=== PATIENT | female | born 1980 | race Two or more races ===

== ENCOUNTER 2025-01-28 13:00 | Outpatient (RCR) | payer MEDICAID, SELFPAY ==
--- NOTE | 2025-01-22 10:11 | PT.OIERPT ---
PT OP Initial Eval Patient Information Outpatient Physical Therapy Treatment Date: 01/22/25 Visit Reasons: Chronic pain in RT shoulder Medical Diagnosis: Right Shoulder Pain Treatment Dx #1: Right Shoulder Pain Treatment Dx #2: Right Shoulder Weakness Start of Care: 01/22/25 Date of Onset: 6 months ago Smoking Status Smoking Status: Current every day smoker Cessation Counseling Provided: FELIZ was advised that quitting smoking is the single most important factor to protect the health of themselves and their family. Discussed the benefits of quitting smoking with patient. Encouraged patient to quit smoking and provided Cessation assistance materials and resources. Tobacco Use: Cigarette Years smoked: 10 Are you interested in quitting?: No Would you like additional Smoking Cessation Counseling?: No Initial Assessment Subjective: Pt is a 44 y/o female reports of chronic right shoulder pain (5/10) worse at night. Pt denies of injury or trauma to the shoulder. Pt has limitation with overhead motions, lifting, chores, self care, cooking, cleaning, and performing recreational activities Objective: Right Shoulder PROM: all motions are WFL with end range pain in all direction Right Shoulder AROM Flexion: 100 deg Abduction: 90 deg ER and IR: unable due to pain Right Shoulder MMTs: grossly 3-/5 Right Scapula MMTs: grossly 3-/5 Palpation: TTP supraspinatus tendon Assessment: Pt demonstrate right shoulder pain with mobility deficits consistent with possible rotator cuff involvement leading to difficulty with ADLs. Pt will attempt physical therapy if pain persist Pt will be refer back to provider for further consultation Short Term and Structures Assembler Goals 1) Increase right shoulder AROM WFL in 6 wks to be able to perform overhead motions 2) Decrease shoulder pain to 2/10 in 6 wks to be able to perform chores 3) Increase right shoulder MMTs grossly to 3+/5 in 6 wks to be able to cook and clean 4) Increase right scapula MMTs grossly to 3+/5 in 6 wks to be able to perform self care activities 5) Indep with HEP Treatment Plan 1) Manual Therapy 2) Therapeutic Activities 3) Therapeutic Exercises 4) Modalities (ice, heat) Frequency and Duration: 2 x wk for 6 wks Certification Dates: 01/22/25 to 04/24/25 Procedure Charges OP PT Eval Mod Complex 30 minutes: Yes
--- NOTE | 2025-01-28 13:55 | PT.ODAYNRPT ---
PT Outpatient Daily Note OP Daily Note Outpatient Physical Therapy Treatment Date: 01/28/25 Visit Reasons: Chronic pain in RT shoulder Subjective: Pt's shoulder continues to hurt and any arm movement. Objective: Please see flow chart for list of ther ex performed Assessment: pain with all shoulder exercises. Pt encouraged to complete exercises. Post ice helped with pain and soreness Plan: Continue with PT Length of Time (minutes) of Treatment: 30 Minutes Procedure Charges Therapeutic Exercise 30 minutes: Yes
== END 2025-02-17 23:59 | disposition home or self-care (01) ==
LOC: CPTX 13:00
PROVIDERS: PCP Physician Assistant; Referring Provider Physician Assistant; Visit Provider Physician Assistant
DX: M25.511 Pain in right shoulder (principal); G89.29 Other chronic pain; Z71.6 Tobacco abuse counseling; F17.210 Nicotine dependence, cigarettes, uncomplicated
CPT/HCPCS: 97110; 97162

== ENCOUNTER 2025-03-18 10:47 | Outpatient (RCR) | payer MEDICAID, SELFPAY ==
--- NOTE | 2025-03-18 11:34 | PT.ODAYNRPT ---
PT Outpatient Daily Note OP Daily Note Outpatient Physical Therapy Treatment Date: 03/18/25 Visit Reasons: right shoulder pain Subjective: Pt c/o shoulder pain, mentioened she was helping her boyfriend and son move boxes. Pt mentioned she was carrying a box that was light but still hurt her shoulder. Objective: Please see flow sheet for ther ex list. Assessment: Pt demonstrates poor tolerance with interventions due to high pain response with light interventions. Plan: Continue with POC. Length of Time (minutes) of Treatment: 30 Minutes Procedure Charges Therapeutic Exercise 30 minutes: Yes
== END 2025-03-20 23:59 | disposition home or self-care (01) ==
LOC: CPTX 10:47
PROVIDERS: PCP Physician Assistant; Referring Provider Physician Assistant; Visit Provider Physician Assistant
DX: M25.511 Pain in right shoulder (principal); R53.1 Weakness; G89.29 Other chronic pain
CPT/HCPCS: 97110

== ENCOUNTER 2025-05-28 21:41 | Emergency (ER) | payer MEDICAID, SELFPAY ==
[2025-05-28 21:41] VITALS: BMI 27.1
--- NOTE | 2025-05-28 21:48 | XR_ITS ---
Examination: Foot, right, 3 views Technique: AP, oblique, lateral views foot, 3 views Date and time of exam: May,, 1012 hours INDICATIONS: Patient fell today with injury to foot, foot pain FINDINGS: No acute fracture No dislocation No foreign body IMPRESSION: No acute fracture
--- NOTE | 2025-05-28 21:48 | XR_ITS ---
EXAMINATION: Ankle, right 3 views. Technique: Ankle AP, oblique, lateral 3 views Date and time of exam: May 28, 2025, 10:17 p.m. INDICATION: Patient fell today with injury to ankle, ankle pain. FINDINGS: No acute fracture. No dislocation No foreign body IMPRESSION: No acute fracture
[2025-05-28 23:12] VITALS: BP 124/76; PULSE 66; RESP 19; TEMP 37.1; O2SAT 99
--- NOTE | 2025-05-28 23:23 | PD.EDANKLE ---
Lower Extremity Injury RME/HPI General Chief Complaint: Ankle/Foot Injury Stated Complaint: R FOOT IN INJURY Time Seen by Provider: 05/28/25 22:38 Source: patient, RN notes reviewed and old records reviewed Arrival date/time: 05/28/25 21:41 Mode of arrival: wheelchair Limitations: no limitations RME / HPI RME / HPI Narrative: 45yof presents to ED for ankle/foot pain s/p injury today. Patient states she tripped going down a step and rolled her right ankle/foot, c/o lateral pain and swelling. No deformity reported. No medications or treatments captain room service. Related Data Home Medications ?Medication ?Instructions ?Recorded ?Confirmed albuterol sulfate 90 mcg/actuation 2 inh inhalation Q4HR PRN 11/16/23 04/10/24 aerosol inhaler Bronchospasm baclofen 10 mg tablet 10 mg PO HS 11/16/23 04/10/24 fluticasone 250 mcg-salmeterol 50 1 inh inhalation BID 11/16/23 04/10/24 mcg/dose blistr powdr for inhalation (Advair Diskus) ibuprofen 800 mg tablet 800 mg PO Q8H PRN Pain 11/16/23 04/10/24 Previous Rx's ?Medication ?Instructions ?Recorded ibuprofen 600 mg tablet 600 mg PO Q6H PRN pain #30 tabs 05/28/25 Allergies Allergy/AdvReac Type Severity Reaction Status Date / Time nitrofurantoin Allergy Severe Vomiting Verified 05/28/25 21:45 Review of Systems Review of Systems Systems Reviewed: All systems reviewed, normal except as documented Musculoskeletal Musculoskeletal: Reports arthralgias, Reports joint swelling, Reports limited range of motion, Denies numbness and Denies tingling Neurologic Neurologic: Denies numbness and Denies tingling Past Medical History Past Medical History RESPIRATORY: Positive Chronic Obstructive Pulmonary Disease (COPD) and Asthma MUSCULOSKELETAL: Positive Degenerative Disk Disease and Fibromyalgia PSYCHO/SOCIAL: Positive Bipolar Disorder, Depression and Anxiety OTHER HISTORY: Positive Chemotherapy (2012), Radiation Therapy (2012) and Cervical Cancer Surgical History SURGICAL: Positive Abdominal Surgery and Hysterectomy OTHER SURGICAL HX: L rotator cuff repair Social History SMOKING STATUS: Current every day smoker ED Exam General Limitations: Present no limitations General appearance: Present alert and in no apparent distress Head Head exam: Present atraumatic and normocephalic Eye Eye exam: Present normal appearance, PERRL and EOMI ENT ENT exam: Present normal exam and mucous membranes moist Neck Neck exam: Present normal inspection and full ROM Chest Chest inspection: Present normal inspection and symmetric chest wall rise Respiratory Respiratory exam: Present normal lung sounds bilaterally; Absent respiratory distress Cardiovascular Cardiovascular exam: Present regular rate and normal rhythm Extremities Exam Extremities exam: Present other (Mild tenderness/swelling to right lateral ankle/foot. Limited ROM 2/2 pain. Able to wiggle all toes. 2+ pedal pulse, sensation intact) Neurological Exam Neurological exam: Present alert and oriented X3 Psychiatric Psychiatric exam: Present normal affect and normal mood Skin Skin exam: Present warm, dry and intact Course Quality Measures none Orders Category Date Time Status Crutches .NOW Care 05/28/25 23:28 Completed Splint / Immobilizer STAT Care 05/28/25 23:24 Completed XR ankle comp RT min 3V Stat Exams 05/28/25 21:48 Completed XR foot comp RT min 3V Stat Exams 05/28/25 21:48 Completed Vital Signs Vital signs: Vital Signs Temperature 98.8 F 05/28/25 23:12 Pulse Rate 66 05/28/25 23:12 Respiratory Rate 19 05/28/25 23:12 Blood Pressure 124/76 05/28/25 23:12 Pulse Oximetry (%) 99 05/28/25 23:12 Oxygen Delivery Method Room Air 05/28/25 23:12 PROCEDURES: Splint Fabrication: Pre-Fabricated Type: Ankle Stirrup Reason for Splint: Optimal Positioning, Pain Management and Support Joint/Muscle Circulation Distal to Splint: Yes Movement Distal to Splint: Yes Senation Distal to Splint: Yes Tolerance: Tolerates Well Extremity Injury, Lower MDM Narrative MDM Narrative:: 45yof presents to ED for ankle/foot pain s/p injury today. Patient states she tripped going down a step and rolled her right ankle/foot, c/o lateral pain and swelling. No deformity reported. No medications or treatments captain room service. Patient is neurovascularly intact. Encouraged RICE therapy, pain mgmt prn. Ortho referral given for follow up as needed. Stable for dc, RTED precautions given. Patient data External records reviewed:: [facility] previous records (04/30/25 PT treatment for R shoulder pain) Clinical information provided by:: patient Social determinants that could affect healthcare access:: mental health Patient has the following chronic illnesses:: COPD, bipolar, anxiety, fibromyalgia How is presenting disease/condition affected by chronic disease/condition?: uneffected by Evaluation data The following diagnostics were reviewed and interpreted by me:: radiology exam(s) Lab and/or radiology exams considered but not ordered:: none Interpretation Summary: foot xrays: no fracture per my read Medications / Prescriptions Medications or Prescriptions considered but not ordered:: none Medication administrations:: none Consultations Consultation(s) initiated? (list below): No Diagnosis Extremity Injury, Lower Differential Diagnosis: other (fracture, dislocation, sprain, strain, contusion, msk pain) Most likely diagnosis given after review of the tests above:: ankle/foot sprain Admission Indicated Admission indicated?: not indicated Admission Request Was there a request for admission?: No Disposition Plan Disposition Plan: Discharge Discharge Attestation Discharge Attestation: The patient and all family members were given an opportunity to ask questions and understood the discharge instructions. Discharge instructions specifically effects, indications for sooner follow up or return to the emergency department, and the expected course of current diagnosis. Patient condition: Stable Discharge Plan Plan Patient Disposition: HOME (Self Care) Patient condition on transfer: Stable Prescriptions/Referrals Prescriptions/Med Rec: New ibuprofen 600 mg tablet 600 mg PO Q6H PRN (Reason: pain) Qty: 30 0RF No Action fluticasone propion-salmeterol [Advair Diskus] 250-50 mcg/dose Blister With Device 1 inh INHALATION BID ibuprofen 800 mg Tablet 800 mg PO Q8H PRN (Reason: Pain) baclofen 10 mg Tablet 10 mg PO HS albuterol sulfate 90 mcg/actuation Hfa Aerosol Inhaler 2 inh INHALATION Q4HR PRN (Reason: Bronchospasm) Referrals: Simba Escobedo MD [Primary Care Provider, Family Practice] - In 1 week Praveen Vasquez MD [Physician, Orthopedics] Referral Note: Call to schedule an appointment as needed Problem List Clinical Impression: Right ankle sprain, Right foot sprain Patient/Caregiver Discharge Instructions Education Materials: ED Ankle Sprain (Adult) Print Language: Bulgarian Stand Alone Forms: Letty Award Info., Patient Portal Info Letter PA/TYE Supervising Physician PA/CHILD SUPPORT CASE OFFICER Supervising Physician: Rosy
[2025-05-28 23:29] VITALS: BP 123/85; PULSE 85; RESP 14; TEMP 37; O2SAT 99
== END 2025-05-28 23:30 | disposition home or self-care (01) ==
PROVIDERS: Emergency Provider Emergency Medicine; PCP Family Medicine
DX: S93.601A Unspecified sprain of right foot, initial encounter (principal); S93.401A Sprain of unspecified ligament of right ankle, initial encounter; X50.1XXA Overexertion from prolonged static or awkward postures, initial encounter
CPT/HCPCS: 29515; 73610; 73630; 99284

== ENCOUNTER 2025-08-08 15:02 | Emergency (ER) | payer MEDICAID, SELFPAY ==
[2025-08-08 15:03] VITALS: BMI 27.1
[2025-08-08 16:33] VITALS: BP 134/79; PULSE 76; RESP 18; TEMP 36.9; O2SAT 96
--- NOTE | 2025-08-08 16:52 | EDNOTE_ITS ---
Upper Extremity Injury RME/HPI General Chief Complaint: Hand/Wrist Problems Stated Complaint: RIGHT MIDDLE FINGER INFECTION Time Seen by Provider: 08/08/25 15:38 Arrival date/time: 08/08/25 15:02 This is a 45-year-old female that comes into the emergency room with complaints of swelling around the nailbed of the right third digit. Patient reports that she has been doing hot soaks at home and it has not helped. Patient states she was picking at her nail and that is how this started. Patient denies fever ch ills patient denies any other symptoms Related Data Home Medications ?Medication ?Instructions ?Recorded ?Confirmed albuterol sulfate 90 mcg/actuation 2 inh inhalation Q4 HR PRN 11/16/23 04/10/24 aerosol inhaler Bronchospasm baclofen 10 mg tablet 10 mg PO HS 11/16/23 4 fluticasone 250 mcg-salmeterol 50 1 inh inhalation BID 11/16/23 04/10/24 mcg/dose blistr powdr for inhalation (Advair Diskus) ibuprofen 800 mg tablet 800 mg PO Q8H PRN Pain 11/1504/10/24 Previous Rx's ?Medication ?Instructions ?Recorded ibuprofen 600 mg tablet 600 mg PO Q6H PRN pain #30 t abs 05/28/25 ibuprofen 800 mg tablet 800 mg PO Q6H PRN pain #14 t abs 08/08/25 Allergies Allergy/AdvReac Type Severity Reaction Status Date / Time nitrofurantoin Allergy Severe Vomiting Verified 08/08/25 15:05 Review of Systems Review of Systems Systems Reviewed: All systems reviewed, normal except as documented Past Medical History Past Medical History RESPIRATORY: Positive Chronic Obstructive Pulmonary Disease (COPD) and Asthma MUSCULOSKELETAL: Positive Degenerative Disk Disease and Fibromyalgia PSYCHO/SOCIAL: Positive Bipolar Disorder, Depression and Anxiety OTHER HISTORY: Positive Chemotherapy (2012), Radiation Therapy (2012) and Cervical Cancer Surgical History SURGICAL: Positive Abdominal Surgery and Hysterectomy OTHER SURGICAL HX: L rotator cuff repair Social History SMOKING STATUS: Current every day smoker ED Exam Narrative Physical exam: VITAL SIGNS: Reviewed. GENERAL APPEARANCE: Alert and interactive, follows commands, no acute distress HEAD AND FACE: Non-traumatic. ENT: PERRL, conjuctiva pink and clear, eyelid no trauma, Mucous membrane moist. NECK: Supple, nontender, no nuchal rigidity. CHEST: No tenderness, no crepitus, no paradoxical movement, no retractions. LUNGS: breathing even and unlabored HEART: Regular rate, cap refill less than 2 seconds ABDOMEN: Soft NEUROLOGICAL: Gross motor function intact sensory function intact, Appropriate for age. MUSCULOSKELETAL: low back nontender, full range of motion. no midline tenderness, no meningismus, no step offs EXTREMITIES: No redness no swelling no skin breakdown on bilateral foot and leg. Distal neurovascular status intact bilateral foot SKIN: Color pink, dry, erythema around the right side of the nailbed and a lot of induration around the skin around the nailbed pain to palpation Course Quality Measures none Orders Category Date Time Status Acetaminophen Tab [Tylenol ES Tab] Med 08/08/25 17:20 Discontinued 1,000 mg PO X1 ONE Doxycycline [Vibramycin] Med 08/08/25 17:20 Discontinued 100 mg PO X1 ONE Ibuprofen Tab [Motrin Tab] Med 08/08/25 17:20 Discontinued 800 mg PO X1 ONE Ondansetron Odt [Zofran Odt] Med 08/08/25 17:20 Discontinued 4 mg PO X1 ONE Vital Signs Vital signs: Vital Signs Temperature 98.5 F 08/08/25 16:33 Pulse Rate 76 08/08/25 16:33 Respiratory Rate 18 08/08/25 16:33 Blood Pressure 134/79 H 08/08/25 16:33 Pulse Oximetry (%) 96 08/08/25 16:33 Oxygen Delivery Method Room Air 08/08/25 16:33 Extremity Injury MDM Narrative MDM Narrative:: I spoke to patient at length. I talked to patient about lancing and trying to drain area of paronychia. At this time patient does not want area drained but she would like to hold off. I explained to patient she can come back to the emergency room in a few days or this may open up on his own. area appears to be indurated there is a small area that is soft that may have fluid and there but patient at this time does not want to have it drained and states she will continue soaking it at home and will take antibiotics. Will give patient doxycycline here along with Tylenol ibuprofen. Patient verbalized understanding and feels comfortable plan of care. Patient told make sure she makes an appointment with primary doctor in 1 to 2 days. [place]mak to emergency room if symptoms change or worsen. Dwayne dictation: Although this document has been carefully reviewed, there may still be some phonetic and other typographical errors. These errors are purely grammatical due to imperfections in the software program and should not be construed in any way to compromise the substance of the patient's medical care during this visit. Patient data External records reviewed:: [facility] previous records Clinical information provided by:: patient Social determinants that could affect healthcare access:: none Patient has the following chronic illnesses:: see note How is presenting disease/condition affected by chronic disease/condition?: no chronic disease Evaluation data The following diagnostics were reviewed and interpreted by me:: other (specify) (none) Lab and/or radiology exams considered but not ordered:: none Interpretation Summary: see note Medications / Prescriptions Medications or Prescriptions considered but not ordered:: none Medication administrations:: Medication Administration History Discontinued Medications Acetaminophen (Acetaminophen 500 Mg Tablet) 1,000 mg PO X1 ONE Stop: 08/08/25 17:21 Last Admin: 08/08/25 17:42 Dose: 1,000 mg Documented By: RAIZA Doxycycline Hyclate (Doxycycline 100 Mg Tablet) 100 mg PO X1 ONE Stop: 08/08/25 17:21 Last Admin: 08/08/25 17:42 Dose: 100 mg Documented By: RAIZA Ibuprofen (Ibuprofen Tab 400 Mg Tablet) 800 mg PO X1 ONE Stop: 08/08/25 17:21 Last Admin: 08/08/25 17:43 Dose: 800 mg Documented By: RAIZA Ondansetron HCl (Ondansetron Odt 4 Mg Tabrap) 4 mg PO X1 ONE; Protocol Stop: 08/08/25 17:21 Last Admin: 08/08/25 17:41 Dose: 4 mg Documented By: RAIZA see [facility] Consultations Consultation(s) initiated? (list below): No Diagnosis Upper Extremity Injury Differential Diagnosis: other (cellulitis, ingrown nail, abcsess) Most likely diagnosis given after review of the tests above:: see note Admission Indicated Admission indicated?: not indicated Admission Request Was there a request for admission?: No Disposition Plan Disposition Plan: Discharge Discharge Attestation Discharge Attestation: The patient and all family members were given an opportunity to ask questions and understood the discharge instructions. Discharge instructions specifically effects, indications for sooner follow up or return to the emergency department, and the expected course of current diagnosis. Patient condition: Stable Discharge Plan Plan Patient Disposition: HOME (Self Care) Patient condition on transfer: Stable Prescriptions/Referrals Prescriptions/Med Rec: New ibuprofen 800 mg tablet 800 mg PO Q6H PRN (Reason: pain) Qty: 14 0RF No Action fluticasone propion-salmeterol [Advair Diskus] 250-50 mcg/dose Blister With Device 1 inh INHALATION BID ibuprofen 800 mg Tablet 800 mg PO Q8H PRN (Reason: Pain) baclofen 10 mg Tablet 10 mg PO HS albuterol sulfate 90 mcg/actuation Hfa Aerosol Inhaler 2 inh INHALATION Q4HR PRN (Reason: Bronchospasm) ibuprofen 600 mg tablet 600 mg PO Q6H PRN (Reason: pain) Qty: 30 0RF Problem List Clinical Impression: Paronychia, Cellulitis of finger Patient/Caregiver Discharge Instructions Discharge Activity: activity as tolerated Education Materials: ED Cellulitis, ED Paronychia of the Finger or Toe Additional Instructions: Follow-up with primary provider in 1 to 2 days. Continue soaking finger every 4 hours. Come back to the emergency room and symptoms change or worsen Print Language: Kiswahili Stand Alone Forms: Letty Award Info., Patient Portal Info Letter PA/CLEARING INSPECTOR Supervising Physician AZALEA/CLEARING INSPECTOR Supervising Physician: [email or web address]
[2025-08-08] MEDS: ONDANSETRON ODT 4 MG TABRAP PO (17:41)
[2025-08-08] MEDS: ACETAMINOPHEN 500 MG TABLET 1000 MG PO (17:42)
[2025-08-08] MEDS: DOXYCYCLINE 100 MG TABLET PO (17:42)
[2025-08-08] MEDS: IBUPROFEN TAB 400 MG TABLET 800 MG PO (17:43)
== END 2025-08-08 18:23 | disposition home or self-care (01) ==
LOC: SERX 17:29
PROVIDERS: Emergency Provider Family Medicine; PCP Internal Medicine
DX: L03.011 Cellulitis of right finger (principal)
CPT/HCPCS: 99281; Q0162; A9270